=== PATIENT | female | born 1995 | race Caucasian/White ===

== ENCOUNTER 2022-01-24 14:18 | Emergency (ER) | payer SELFPAY ==
[~2022-01-24] VITALS: Ht 165.1 cm; Wt 65.0 kg
[2022-01-24] MEDS ORDERED: DEXAMETHASONE SOD PHOS 4 MG/ML 5 ML VIAL IM ONE (14:45)
[2022-01-24] MEDS ORDERED: IBUPROFEN 600 MG TABLET PO ONE (14:45)
[2022-01-24 15:17] LABS: COVID AG,FIA SOURCE NASOPHARYNGEAL
[2022-01-24 15:33] LABS: RAPID GROUP A STREP NEGATIVE (NEGATIVE)
[2022-01-24 15:39] LABS: INFLUENZA TYPE A NEGATIVE FOR TYPE A (NEGATIVE); INFLUENZA TYPE B NEGATIVE FOR TYPE B (NEGATIVE)
[2022-01-24 15:56] VITALS: BP 119/74
== END 2022-01-24 16:07 | disposition home or self-care (01) ==
LOC: EMS 14:18
DX: J02.8 Acute pharyngitis due to other specified organisms (principal); B97.89 Other viral agents as the cause of diseases classified elsewhere; R03.0 Elevated blood-pressure reading, without diagnosis of hypertension; Z20.822 Contact with and (suspected) exposure to COVID-19
CPT/HCPCS: 87426; 87430; 87804; 96372; 99283; J1100